=== PATIENT | male | born 1980 | race Hispanic/Latino ===

== ENCOUNTER 2018-03-13 13:19 | Outpatient (CLI) | payer OTHER ==
--- NOTE | 2018-03-13 13:40 | XRay Report ---
XRAY CHEST TWO VIEWS: 03/13/18 13:19:00 CLINICAL: Cough. COMPARISON: None FINDINGS: Normal heart and pulmonary vasculature. Lungs are clear except for some bronchial wall thickening, particularly in the left lung base. No airspace disease or pleural effusion. Exaggerated thoracic kyphosis but no spine fractures. IMPRESSION: Bronchial wall thickening consistent with bronchitis. No pneumonia.
== END 2018-03-13 13:20 | disposition home or self-care (01) ==
LOC: SPVIMAG 13:19
DX: J40 Bronchitis, not specified as acute or chronic (principal); K21.9 Gastro-esophageal reflux disease without esophagitis
CPT/HCPCS: 71046